=== PATIENT | female | born 1965 | race Caucasian/White ===

== ENCOUNTER 2019-03-09 17:18 | Inpatient (IN) | payer OTHER ==
[2019-03-09] MEDS: ENALAPRILAT 1.25 MG INJ IV (17:54)
[2019-03-09] MEDS: FUROSEMIDE 40 MG INJ IV (17:54)
[2019-03-09] MEDS: ASPIRIN 81 MG TAB PO (17:55)
[2019-03-09 18:05] LABS: ADD MAN DIFF? NO
[2019-03-09 18:09] LABS: BASOPHIL # 0.1 10^3/ul (0.0-0.1); BASOPHILS % 0.5 % (0.0-2.0); EOSINOPHILS # 0.3 10^3/ul (0.0-0.5); EOSINOPHILS % 2.4 % (0.0-7.0); HEMATOCRIT 40.6 % (37.0-47.0); HEMOGLOBIN 13.1 g/dl (12.0-16.0); LYMPHOCYTES # 3.7 10^3/ul (0.8-2.9); LYMPHOCYTES % 34.1 % (15.0-51.0); MEAN CORPUSCULAR HEMOGLOBIN 28.7 pg (29.0-33.0); MEAN CORPUSCULAR HGB CONC 32.3 g/dl (32.0-37.0); MEAN CORPUSCULAR VOLUME 88.8 fl (82.0-101.0); MEAN PLATELET VOLUME 9.6 fl (7.4-10.4); MONOCYTES % 9.6 % (0.0-11.0); NEUTROPHIL # 5.8 10^3/ul (1.6-7.5); PLATELET COUNT 301 10^3/UL (140-415); RED BLOOD COUNT 4.57 10^6/ul (4.20-5.40); RED CELL DISTRIBUTION WIDTH 12.4 % (11.5-14.5)
[2019-03-09 18:09] LABS: WHITE BLOOD COUNT 10.8 10^3/ul (4.8-10.8)
[2019-03-09 18:28] LABS: INR 0.88; PT RATIO 0.9
[2019-03-09 18:29] LABS: PARTIAL THROMBOPLASTIN TIME 25.5 Sec (23.0-35.0)
[2019-03-09 18:31] LABS: ALANINE AMINOTRANSFERASE 24 IU/L (13-69); ALBUMIN 4.3 g/dl (3.3-4.9); ALBUMIN/GLOBULIN RATIO 1.34; ALKALINE PHOSPHATASE 54 IU/L (42-121); ANION GAP 9 (5-13); ASPARTATE AMINO TRANSFERASE 20 IU/L (15-46); BILIRUBIN,INDIRECT 0.3 mg/dl (0-1.1); BILIRUBIN,TOTAL 0.3 mg/dl (0.2-1.3); BLOOD UREA NITROGEN 16 mg/dl (7-20); CALCIUM 9.1 mg/dl (8.4-10.2); CARBON DIOXIDE 24 mmol/L (21-31); CHLORIDE 105 mmol/L (97-110); CREATININE 0.61 mg/dl (0.44-1.00); Estimated GFR > 60 mL/min (>60); GLUCOSE 114 mg/dl (70-220); LIPASE 82 U/L (23-300); POTASSIUM 3.8 mmol/L (3.5-5.1); SODIUM 138 mmol/L (135-144); TOTAL PROTEIN 7.5 g/dl (6.1-8.1)
[2019-03-09 18:40] LABS: B-TYPE NATRIURETIC PEPTIDE 44 PG/ML (0-125)
[2019-03-09 18:43] LABS: TROPONIN-I < 0.012 ng/ml (0.000-0.120)
[2019-03-09 18:48] LABS: ADD UMIC NO; UR ASCORBIC ACID NEGATIVE (NEGATIVE); UR BILIRUBIN (Dip) NEGATIVE (NEGATIVE); UR BLOOD (Dip) NEGATIVE (NEGATIVE); UR CLARITY CLEAR (CLEAR); UR COLOR STRAW (YELLOW); UR GLUCOSE (Dip) NEGATIVE (NEGATIVE); UR KETONES (Dip) NEGATIVE (NEGATIVE); UR LEUKOCYTE ESTERASE (Dip) NEGATIVE Leu/ul (NEGATIVE); UR NITRITE (Dip) NEGATIVE (NEGATIVE); UR SPECIFIC GRAVITY (Dip) 1.013 (1.003-1.030); UR TOTAL PROTEIN (Dip) NEGATIVE (NEGATIVE); UR UROBILINOGEN (Dip) NEGATIVE (NEGATIVE)
[2019-03-09] MEDS: IOHEXOL 100 ML (19:45)
[2019-03-09] MEDS: SOD CHLORIDE 0.9% 100 ML (19:45)
[2019-03-09] MEDS: LORAZEPAM 0.5 MG TAB PO (20:25)
[2019-03-09] MEDS ORDERED: ONDANSETRON 4 MG INJ IV (20:30)
[2019-03-09] MEDS ORDERED: ACETAMINOPHEN 325 MG TAB PO (20:30)
[2019-03-09] MEDS ORDERED: BISACODYL (EC) 5 MG TAB PO (20:30)
[2019-03-09] MEDS ORDERED: NACL 0.9% 3 ML SYG IV (20:30)
[2019-03-09] MEDS ORDERED: DOCUSATE SODIUM 100 MG CAP PO (20:30)
[2019-03-10 05:50] LABS: ADD MAN DIFF? NO
[2019-03-10 05:55] LABS: BASOPHIL # 0.1 10^3/ul (0.0-0.1); BASOPHILS % 0.6 % (0.0-2.0); EOSINOPHILS # 0.2 10^3/ul (0.0-0.5); HEMATOCRIT 42.9 % (37.0-47.0); HEMOGLOBIN 13.7 g/dl (12.0-16.0); LYMPHOCYTES # 3.7 10^3/ul (0.8-2.9); LYMPHOCYTES % 34.1 % (15.0-51.0); MEAN CORPUSCULAR HEMOGLOBIN 28.4 pg (29.0-33.0); MEAN CORPUSCULAR HGB CONC 31.9 g/dl (32.0-37.0); MEAN CORPUSCULAR VOLUME 88.8 fl (82.0-101.0); MEAN PLATELET VOLUME 9.7 fl (7.4-10.4); MONOCYTE # 1.2 10^3/ul (0.3-0.9); MONOCYTES % 11.4 % (0.0-11.0); NEUTROPHIL # 5.6 10^3/ul (1.6-7.5); NEUTROPHILS % 51.5 % (39.0-77.0); PLATELET COUNT 296 10^3/UL (140-415); RED BLOOD COUNT 4.83 10^6/ul (4.20-5.40); RED CELL DISTRIBUTION WIDTH 12.4 % (11.5-14.5)
[2019-03-10 05:55] LABS: WHITE BLOOD COUNT 10.8 10^3/ul (4.8-10.8)
[2019-03-10 06:05] LABS: ALANINE AMINOTRANSFERASE 26 IU/L (13-69); ALBUMIN 4.2 g/dl (3.3-4.9); ALBUMIN/GLOBULIN RATIO 1.35; ALKALINE PHOSPHATASE 50 IU/L (42-121); ANION GAP 7 (5-13); ASPARTATE AMINO TRANSFERASE 17 IU/L (15-46); BILIRUBIN,INDIRECT 0.4 mg/dl (0-1.1); BILIRUBIN,TOTAL 0.4 mg/dl (0.2-1.3); BLOOD UREA NITROGEN 17 mg/dl (7-20); CALCIUM 9.2 mg/dl (8.4-10.2); CARBON DIOXIDE 30 mmol/L (21-31); CHLORIDE 102 mmol/L (97-110); CHOL/HDL RATIO 3.6 RATIO; CHOLESTEROL 214 mg/dl (100-200); CREATININE 0.75 mg/dl (0.44-1.00); Estimated GFR > 60 mL/min (>60); GLUCOSE 102 mg/dl (70-220); HDL CHOLESTEROL 59 mg/dl (37-92); LDL CHOLESTEROL,CALCULATED 140 mg/dl; MAGNESIUM 2.2 mg/dl (1.7-2.5); POTASSIUM 3.7 mmol/L (3.5-5.1); SODIUM 139 mmol/L (135-144); TOTAL PROTEIN 7.3 g/dl (6.1-8.1); TRIGLYCERIDES 77 mg/dl (0-149)
[2019-03-10 07:39] LABS: HEMOGLOBIN A1C 5.3 % (0-5.9)
[2019-03-10] MEDS ORDERED: ALBUTEROL 0.083% (NEB) 2.5 MG/3 ML AMP HHN (12:00)
[2019-03-10] MEDS: METOPROLOL (XL) 25 MG TAB PO (20:48)
[2019-03-10] MEDS: ZOLPIDEM 5 MG TAB PO (22:22)
[2019-03-11] MEDS ORDERED: LORAZEPAM 0.5 MG TAB PO (10:00)
== END 2019-03-11 13:58 | disposition home or self-care (01) | DRG 310 ==
LOC: 6WM 19:35 → E/R 17:18
PROVIDERS: Family Medicine
DX: I49.8 Other specified cardiac arrhythmias (principal); I10 Essential (primary) hypertension; R06.09 Other forms of dyspnea; F41.9 Anxiety disorder, unspecified
CPT/HCPCS: 36415; 71045; 71275; 80053; 80061; 81003; 83036; 83690; 83735; 83880; 84443; 84484; 85025; 85610; 85730; 93005; 93306; 96374; 96375; 99285-25